=== PATIENT | male | born 1980 | race American Indian/Alaskan Native ===

== ENCOUNTER 2018-01-04 06:28 | Emergency (ER) | payer SELFPAY ==
[2018-01-04 08:24] VITALS: BP 127/78
--- NOTE | 2018-01-04 09:30 | Emergency Department Report ---
ED ENT HPI - General Chief complaint: Dental/Oral Stated complaint: TOOTHACHE Time Seen by Provider: 01/04/18 08:59 Source: patient Mode of arrival: Ambulatory Limitations: No Limitations - History of Present Illness Initial comments: 37-year-old male past medical history none presents with complaint of approximately 1 week of left-sided lower toothache. Patient has multiple cavities which she has not yet had addressed by a dentist. Denies any pus or blood drainage from mouth. Speaking in full sentences. No trismus. No drooling noted. Patient speaking in full sentences no dyspnea awake alert and oriented 3. Denies fevers and chills. MD complaint: tooth pain Onset/Timin -: week(s) Location: tooth # 1 - Gumline swelling here Severity scale (0 -10): 6 Quality: aching Consistency: constant Improves with: none, pressure Worsens with: eating Context- Dental: history of dental caries, poor dental care Associated Symptoms: gum swelling, toothache - Related Data Previous Rx's Medication Instructions Recorded Last Taken Type Acetaminophen/Codeine [Tylenol 1 tab PO Q6H PRN #9 tab 01/04/18 Unknown Rx /Codeine # 3 tab] Chlorhexidine Mouthwash [Peridex] 15 ml MM BID #1 bottle 01/04/18 Unknown Rx Clindamycin [Clindamycin CAP] 300 mg PO Q6H #40 capsule 01/04/18 Unknown Rx Ibuprofen [Motrin] 800 mg PO Q8HR PRN #25 tablet 01/04/18 Unknown Rx Allergies Allergy/AdvReac Type Severity Reaction Status Date / Time No Known Allergies Allergy Verified 01/04/18 08:24 ED Dental HPI - General Chief complaint: Dental/Oral Stated complaint: TOOTHACHE Time Seen by Provider: 01/04/18 08:59 Source: patient Mode of arrival: Ambulatory Limitations: No Limitations - Related Data Previous Rx's Medication Instructions Recorded Last Taken Type Acetaminophen/Codeine [Tylenol 1 tab PO Q6H PRN #9 tab 01/04/18 Unknown Rx /Codeine # 3 tab] Chlorhexidine Mouthwash [Peridex] 15 ml MM BID #1 bottle 01/04/18 Unknown Rx Clindamycin [Clindamycin CAP] 300 mg PO Q6H #40 capsule 01/04/18 Unknown Rx Ibuprofen [Motrin] 800 mg PO Q8HR PRN #25 tablet 01/04/18 Unknown Rx Allergies Allergy/AdvReac Type Severity Reaction Status Date / Time No Known Allergies Allergy Verified 01/04/18 08:24 ED Review of Systems ROS: Stated complaint: TOOTHACHE Other details as noted in HPI Constitutional: denies: chills, fever Eyes: denies: eye pain, eye discharge, vision change ENT: dental pain. denies: ear pain, throat pain Respiratory: denies: cough, shortness of breath, wheezing Cardiovascular: denies: chest pain, palpitations Endocrine: no symptoms reported Gastrointestinal: denies: abdominal pain, nausea, diarrhea Genitourinary: denies: urgency, dysuria Musculoskeletal: denies: back pain, joint swelling, arthralgia Skin: denies: rash, lesions Neurological: denies: headache, weakness, paresthesias Psychiatric: denies: anxiety, depression Hematological/Lymphatic: denies: easy bleeding, easy bruising ED Past Medical Hx - Past Medical History Previous Medical History?: No - Surgical History Past Surgical History?: Yes Additional Surgical History: ABD SURGERY - Social History Smoking Status: Current Every Day Smoker Substance Use Type: None - Medications Home Medications: Home Medications Medication Instructions Recorded Confirmed Last Taken Type Acetaminophen/Codeine [Tylenol 1 tab PO Q6H PRN #9 tab 01/04/18 Unknown Rx /Codeine # 3 tab] Chlorhexidine Mouthwash [Peridex] 15 ml MM BID #1 bottle 01/04/18 Unknown Rx Clindamycin [Clindamycin CAP] 300 mg PO Q6H #40 capsule 01/04/18 Unknown Rx Ibuprofen [Motrin] 800 mg PO Q8HR PRN #25 tablet 01/04/18 Unknown Rx ED Physical Exam - General Limitations: No Limitations General appearance: alert, in no apparent distress - Head Head exam: Present: atraumatic, normocephalic - Eye Eye exam: Present: normal appearance, PERRL, EOMI - ENT ENT exam: Present: mucous membranes moist - Expanded ENT Exam Expanded Teeth exam: Present: dental tenderness # (20) 1 - Dental Tenderness (dental abscess here) - Neck Neck exam: Present: normal inspection - Respiratory Respiratory exam: Present: normal lung sounds bilaterally. Absent: respiratory distress - Cardiovascular Cardiovascular Exam: Present: regular rate, normal rhythm. Absent: systolic murmur, diastolic murmur, rubs, gallop - GI/Abdominal GI/Abdominal exam: Present: soft, normal bowel sounds - Rectal Rectal exam: Present: deferred - Extremities Exam Extremities exam: Present: normal inspection - Back Exam Back exam: Present: normal inspection - Neurological Exam Neurological exam: Present: alert, oriented X3, CN II-XII intact, normal gait - Psychiatric Psychiatric exam: Present: normal affect, normal mood - Skin Skin exam: Present: warm, dry, intact, normal color. Absent: rash ED Course Vital Signs 01/04/18 08:19 Temperature 98.6 F Pulse Rate 89 Respiratory 16 Rate Blood Pressure 127/78 O2 Sat by Pulse 99 Oximetry ED Medical Decision Making - Medical Decision Making A/P: dental cavities, toothache, dental abscess 1- Motrin when necessary, amoxicillin ten-day course, Orajel when necessary, Peridex mouthwash daily basis, short course codeine when necessary 2- I provided patient with information for multiple dental clinics to follow up and stressed the importance of dental follow-up as he has multiple cavities that require dental fixation or instrumentation 3- no clinical signs of facial abscess, no Gadiel's angina, no induration or cellulitis of floor of mouth or tongue 4- patient able to tolerate by mouth before discharge 5- no signs of facial infection. Advised patient that if he does not take antibiotics with follow-up with a dentist as soon as possible that a can result in potentially serious or dangerous infection to develop in jaw or face. Patient states that he understood these instructions. I advised patient to return to the ED for any persistent unrelenting nausea or vomiting fever or chills or headaches. Critical care attestation.: If time is entered above; I have spent that time in minutes in the direct care of this critically ill patient, excluding procedure time. ED Disposition Clinical Impression: Dental abscess, Dental cavities Disposition: TO HOME OR SELFCARE Is pt being admited?: No Does the pt Need Aspirin: No Condition: Stable Instructions: Dental Abscess (ED), Dental Caries (ED), Toothache (ED) Prescriptions: Acetaminophen/Codeine [Tylenol /Codeine # 3 tab] 1 tab PO Q6H PRN #9 tab PRN Reason: Pain Chlorhexidine Mouthwash [Peridex] 15 ml MM BID #1 bottle Clindamycin [Clindamycin CAP] 300 mg PO Q6H #40 capsule Ibuprofen [Motrin] 800 mg PO Q8HR PRN #25 tablet PRN Reason: Pain Referrals: [facility] [Outside] - 3-5 Days Forms: Work/School Release Form(ED) Time of Disposition: 09:26
== END 2018-01-04 09:37 | disposition home or self-care (01) ==
LOC: ED 06:28
DX: K04.7 Periapical abscess without sinus (principal); K02.9 Dental caries, unspecified; F17.200 Nicotine dependence, unspecified, uncomplicated
CPT/HCPCS: 99282

== ENCOUNTER 2018-02-25 08:05 | Emergency (ER) | payer OTHER ==
--- NOTE | 2018-02-25 08:44 | Emergency Department Report ---
ED Rash HPI - HPI Chief Complaint: Skin Rash Stated Complaint: RASH Time Seen by Provider: 02/25/18 08:33 Duration: 1 Day Location: Head (forehead), Back (upper back), Lower Extremities (right foot) Suspected Cause: Medication, Other (history of syphilis) Rash Symptoms: No Itching, No Facial Swelling, No Tongue/Oral Swelling, No Breathing Difficulties, No Choking Sensation, No Wheezing/Dyspnea, No Peeling, No Blistering, No Fever, No Lightheaded, No Malaise, No Myalgias Severity: mild Other History: This is a 37 y.o. A.A. male that presents with a rash to forehead , upper back, and right foot. He took male enhancer pills Thursday morning and noticed a rash to forehead 1 hour later. He took benadryl twice yesterday but the rash continued to spread to upper back and this morning he noticed a single bump on right foot. He had syphilis last year and completed treatment. He is worried it has possibly returned because this rash is very similar in presentation as the last time. The rash is non-puritic. Denies difficulty breathing, tongue swelling, SOB, chest pain, puritis, or redness. ED Review of Systems ROS: Stated complaint: RASH Other details as noted in HPI Constitutional: denies: chills, fever Respiratory: denies: cough, shortness of breath, wheezing Cardiovascular: denies: chest pain, palpitations Gastrointestinal: denies: abdominal pain, nausea, vomiting, diarrhea Skin: rash (forehead, upper back, right foot). denies: lesions Neurological: denies: headache, weakness, numbness, paresthesias Psychiatric: denies: anxiety, depression ED Past Medical Hx - Past Medical History Previous Medical History?: Yes Additional medical history: STD exposure- Syphylis - Surgical History Past Surgical History?: Yes Additional Surgical History: ABD SURGERY - Social History Smoking Status: Current Every Day Smoker Substance Use Type: Alcohol, Marijuana - Medications Home Medications: Home Medications Medication Instructions Recorded Confirmed Last Taken Type Acetaminophen/Codeine [Tylenol 1 tab PO Q6H PRN #9 tab 01/04/18 Unknown Rx /Codeine # 3 tab] Chlorhexidine Mouthwash [Peridex] 15 ml MM BID #1 bottle 01/04/18 Unknown Rx Clindamycin [Clindamycin CAP] 300 mg PO Q6H #40 capsule 01/04/18 Unknown Rx Ibuprofen [Motrin] 800 mg PO Q8HR PRN #25 tablet 01/04/18 Unknown Rx Triamcinolone 0.1% [Kenalog 0.1% 1 applic TP BID #60 gram 02/25/18 Unknown Rx CREAM] Rash Exam - Exam General: Vital signs noted. No distress. Alert and acting appropriately. HEENT: No Periorbital Edema, No Conjuctival Injection, No Chemosis, No Perioral Edema, No Tongue Edema, No Uvular Edema, No Compromised Airway, No Drooling Lungs: Yes Good Air Exchange (Normal Breath Sounds), No Wheezes, No Ronchi, No Stridor, No Cough, No Labored Respirations, No Retractions, No Use of Accessory Muscles, No Other Abnormal Lung Sounds Heart: Yes Regular, No Murmur Skin: Yes Maculopapular Rash (diffuse maculopapular rash to bilateral upper back , forehead), Yes Other (nontender, ulcer, plantar right lateral foot), No Urticarial Rash, No Morbilliform rash, No Bulla(e), No Excoriations, No Weeping , No Tenderness, No Erythema, No Edema, No Encrustations ED Course Vital Signs 02/25/18 08:10 Temperature 98.6 F Pulse Rate 64 Respiratory 18 Rate Blood Pressure 132/96 O2 Sat by Pulse 100 Oximetry ED Medical Decision Making - Medical Decision Making This is a 37 y.o. A. A. male that presents with rash to forehead, upper back, and right foot. History of syphilis. Took male enhancement pills yesterday and rash occurred. He is worried syphilis reoccurred because recent STD exposure. Patient examined by me. No distress noted. Vitals stable. Obtained RPR & HIV, both nonreactive. Physical assessment susceptible of anaphylaxis. Given decadron 8 mg IM once in ER. Start triamcinolone cream and use benadryl for symptom relief. F/U with PCP in 24-72 hours. Discussed plan with patient and agreed to plan. Critical care attestation.: If time is entered above; I have spent that time in minutes in the direct care of this critically ill patient, excluding procedure time. ED Disposition Clinical Impression: Anaphylactic reaction Qualifiers: Encounter type: initial encounter Qualified Code(s): T78.2XXA - Anaphylactic shock, unspecified, initial encounter Disposition: DC-01 TO HOME OR SELFCARE Is pt being admited?: No Does the pt Need Aspirin: No Condition: Stable Instructions: Anaphylaxis (ED) Additional Instructions: Apply a thin layer of triamcinolone cream twice a day for 5-10 days. Wash area daily with soap and water. Follow up with Primary Care Provider in 24-72 hours. Prescriptions: Triamcinolone 0.1% [Kenalog 0.1% CREAM] 1 applic TP BID #60 gram Referrals: [facility] [Outside] - 3-5 Days [facility] [Outside] - 3-5 Days [facility] [Outside] - 3-5 Days Forms: Work/School Release Form(ED) Time of Disposition: 12:00 Print Language: KAZAKH
[2018-02-25] MEDS ORDERED: DECADRON IM ONE (11:57)
[2018-02-25 12:21] VITALS: BP 109/80
== END 2018-02-25 12:19 | disposition home or self-care (01) ==
LOC: ED 08:05
DX: T78.2XXA Anaphylactic shock, unspecified, initial encounter (principal); Y92.89 Other specified places as the place of occurrence of the external cause; F17.200 Nicotine dependence, unspecified, uncomplicated; F12.10 Cannabis abuse, uncomplicated
CPT/HCPCS: 36415; 86592; 87806; 96372; 99283; J1100

== ENCOUNTER 2019-04-15 05:38 | Emergency (ER) | payer SELFPAY ==
[2019-04-15 06:15] LABS: Basophils # (Auto) 0.1 K/mm3 (0.0-0.1); Basophils % (Auto) 0.4 % (0.0-1.8); Eosinophils # (Auto) 0.1 K/mm3 (0.0-0.4); Eosinophils % (Auto) 0.7 % (0.0-4.3); Hematocrit 41.7 % (35.5-45.6); Hemoglobin 14.2 gm/dl (11.8-15.2); Lymphocytes # (Auto) 2.4 K/mm3 (1.2-5.4); Lymphocytes % (Auto) 19.3 % (13.4-35.0); Mean Corpuscular HGB Conc 34 % (32-34); Mean Corpuscular Volume 89 fl (84-94); Monocytes # (Auto) 1.1 K/mm3 (0.0-0.8); Monocytes % (Auto) 8.7 % (0.0-7.3); Platelet Count 295 K/mm3 (140-440); Red Blood Count 4.69 M/mm3 (3.65-5.03); Red Cell Distribution Width 13.9 % (13.2-15.2)
[2019-04-15 06:31] LABS: BUN/Creatinine Ratio 4; Blood Urea Nitrogen 4 mg/dL (9-20); Calcium 8.9 mg/dL (8.4-10.2); Hemolysis Index 3
[2019-04-15 07:02] VITALS: BP 111/75
--- NOTE | 2019-04-15 07:05 | Emergency Department Report ---
ED General Adult HPI - General Chief complaint: Urogenital-Male Stated complaint: BLOOD IN URINE Time Seen by Provider: 04/15/19 07:03 Source: patient Mode of arrival: Ambulatory Limitations: No Limitations - History of Present Illness Initial comments: 8-year-old man who states he has no chronic medical problems or history of kidney stone. He has had prior surgery. He complains of suprapubic discomfort which has been going on intermittently for a week. He states that he has discomfort in his suprapubic area when he urinates. He noted minimal amount of blood in his urine yesterday. He said no fever chills nausea or vomiting. He likewise denies back pain. Denies a prior history of UTI. He is found sleeping on my initial encounter. He is not complaining of pain now. No scrotal swelling or pain. -: Gradual, week(s) Location: abdomen Severity scale (0 -10): 0 Quality: aching Consistency: intermittent, now resolved Improves with: none Worsens with: none Associated Symptoms: denies other symptoms - Related Data Previous Rx's Medication Instructions Recorded Last Taken Type Acetaminophen/Codeine [Tylenol 1 tab PO Q6H PRN #9 tab 01/04/18 Unknown Rx /Codeine # 3 tab] Chlorhexidine Mouthwash [Peridex] 15 ml MM BID #1 bottle 01/04/18 Unknown Rx Clindamycin [Clindamycin CAP] 300 mg PO Q6H #40 capsule 01/04/18 Unknown Rx Ibuprofen [Motrin] 800 mg PO Q8HR PRN #25 tablet 01/04/18 Unknown Rx Triamcinolone 0.1% [Kenalog 0.1% 1 applic TP BID #60 gram 02/25/18 Unknown Rx CREAM] cefUROXime [Ceftin] 250 mg PO Q12H #20 tablet 04/15/19 Unknown Rx traMADol [Ultram] 50 mg PO Q6HR PRN #7 tablet 04/15/19 Unknown Rx Allergies Allergy/AdvReac Type Severity Reaction Status Date / Time No Known Allergies Allergy Verified 01/04/18 08:24 ED Review of Systems ROS: Stated complaint: BLOOD IN URINE Other details as noted in HPI Constitutional: denies: chills, fever Eyes: denies: eye pain, eye discharge, vision change ENT: denies: ear pain, throat pain Respiratory: denies: cough, shortness of breath, wheezing Cardiovascular: denies: chest pain, palpitations Endocrine: no symptoms reported Gastrointestinal: abdominal pain. denies: nausea, diarrhea Genitourinary: dysuria, hematuria. denies: urgency Musculoskeletal: denies: back pain, joint swelling, arthralgia Skin: denies: rash, lesions Neurological: denies: headache, weakness, paresthesias Psychiatric: denies: anxiety, depression Hematological/Lymphatic: denies: easy bleeding, easy bruising ED Past Medical Hx - Past Medical History Previous Medical History?: Yes Additional medical history: STD exposure- Syphylis - Surgical History Past Surgical History?: Yes Additional Surgical History: ABD SURGERY - Social History Smoking Status: Current Every Day Smoker Substance Use Type: Alcohol - Medications Home Medications: Home Medications Medication Instructions Recorded Confirmed Last Taken Type Acetaminophen/Codeine [Tylenol 1 tab PO Q6H PRN #9 tab 01/04/18 Unknown Rx /Codeine # 3 tab] Chlorhexidine Mouthwash [Peridex] 15 ml MM BID #1 bottle 01/04/18 Unknown Rx Clindamycin [Clindamycin CAP] 300 mg PO Q6H #40 capsule 01/04/18 Unknown Rx Ibuprofen [Motrin] 800 mg PO Q8HR PRN #25 tablet 01/04/18 Unknown Rx Triamcinolone 0.1% [Kenalog 0.1% 1 applic TP BID #60 gram 02/25/18 Unknown Rx CREAM] cefUROXime [Ceftin] 250 mg PO Q12H #20 tablet 04/15/19 Unknown Rx traMADol [Ultram] 50 mg PO Q6HR PRN #7 tablet 04/15/19 Unknown Rx ED Physical Exam - General Limitations: No Limitations General appearance: alert, in no apparent distress - Head Head exam: Present: atraumatic, normocephalic - Eye Eye exam: Present: normal appearance - ENT ENT exam: Present: mucous membranes moist - Neck Neck exam: Present: normal inspection - Respiratory Respiratory exam: Present: normal lung sounds bilaterally. Absent: respiratory distress - Cardiovascular Cardiovascular Exam: Present: regular rate, normal rhythm. Absent: systolic murmur, diastolic murmur, rubs, gallop - GI/Abdominal GI/Abdominal exam: Present: soft, normal bowel sounds, other (totally normal abdominal exam). Absent: distended, tenderness, guarding, rebound, rigid, organomegaly, mass, bruit, pulsatile mass, hernia - Rectal Rectal exam: Present: deferred - Extremities Exam Extremities exam: Present: normal inspection - Back Exam Back exam: Present: normal inspection - Neurological Exam Neurological exam: Present: alert, oriented X3 - Psychiatric Psychiatric exam: Present: normal affect, normal mood - Skin Skin exam: Present: warm, dry, intact, normal color. Absent: rash ED Course Vital Signs 04/15/19 04/15/19 05:42 06:59 Temperature 98.8 F 98.2 F Pulse Rate 133 H 118 H Respiratory 18 16 Rate Blood Pressure 125/77 Blood Pressure 111/75 [Left] O2 Sat by Pulse 97 97 Oximetry - Reevaluation(s) Reevaluation #1: Treated with IM Rocephin. Urine culture. Appropriate for outpatient follow-up management. 04/15/19 08:11 ED Medical Decision Making - Lab Data Result diagrams: 04/15/19 06:00 04/15/19 06:00 Laboratory Results - last 24 hr 04/15/19 04/15/19 06:00 06:00 WBC 12.5 H RBC 4.69 Hgb 14.2 Hct 41.7 MCV 89 MCH 30 MCHC 34 RDW 13.9 Plt Count 295 Lymph % (Auto) 19.3 Dickinson % (Auto) 8.7 H Eos % (Auto) 0.7 Baso % (Auto) 0.4 Lymph # 2.4 Dickinson # 1.1 H Eos # 0.1 Baso # 0.1 Seg Neutrophils % 70.9 H Seg Neutrophils # 8.8 H Sodium 139 Potassium 4.2 Chloride 100.3 Carbon Dioxide 29 Anion Gap 14 BUN 4 L Creatinine 1.1 Estimated GFR > 60 BUN/Creatinine Ratio 4 Glucose 107 H Calcium 8.9 Laboratory Results - last 24 hr 04/15/19 04/15/19 06:00 06:00 WBC 12.5 H RBC 4.69 Hgb 14.2 Hct 41.7 MCV 89 MCH 30 MCHC 34 RDW 13.9 Plt Count 295 Lymph % (Auto) 19.3 Dickinson % (Auto) 8.7 H Eos % (Auto) 0.7 Baso % (Auto) 0.4 Lymph # 2.4 Dickinson # 1.1 H Eos # 0.1 Baso # 0.1 Seg Neutrophils % 70.9 H Seg Neutrophils # 8.8 H Sodium 139 Potassium 4.2 Chloride 100.3 Carbon Dioxide 29 Anion Gap 14 BUN 4 L Creatinine 1.1 Estimated GFR > 60 BUN/Creatinine Ratio 4 Glucose 107 H Calcium 8.9 Critical care attestation.: If time is entered above; I have spent that time in minutes in the direct care of this critically ill patient, excluding procedure time. ED Disposition Clinical Impression: Acute cystitis with hematuria Disposition: TO HOME OR SELFCARE Is pt being admited?: No Does the pt Need Aspirin: No Condition: Stable Instructions: Urinary Tract Infection in Men (ED) Additional Instructions: Return any acute change or worsening symptoms, nausea, fever, chills. Follow-up on urine culture in 2 days. See referrals. Rx as directed. Prescriptions: cefUROXime [Ceftin] 250 mg PO Q12H #20 tablet traMADol [Ultram] 50 mg PO Q6HR PRN #7 tablet PRN Reason: Pain Referrals: YENI HUFF MD [Primary Care Provider] - 3-5 Days [facility] [Provider Group] - 3-5 Days Time of Disposition: 08:12
[2019-04-15 07:52] LABS: Bacteria,Urine 1+ /HPF (Negative); Bilirubin,Urine NEG (Negative); Blood,Urine LG (Negative); Color,Urine Yellow (Yellow); Mucus,Urine FEW /HPF
[2019-04-15 07:59] LABS: WBC,Urine > 182.0 /HPF (0.0-6.0)
[2019-04-15] MEDS ORDERED: ROCEPHIN IM ONE (08:09)
[2019-04-15] MEDS ORDERED: NORCO 5/325 PO ONE (08:09)
[2019-04-15] MEDS ORDERED: XYLOCAINE 1% MPF 5 mL INFILTRATI ONE (08:09)
== END 2019-04-15 09:12 | disposition home or self-care (01) ==
LOC: ED 05:38
DX: N30.01 Acute cystitis with hematuria (principal); F17.200 Nicotine dependence, unspecified, uncomplicated
CPT/HCPCS: 36415; 80048; 81001; 85025; 87086; 96372; 99283; J0696